=== PATIENT | male | born 1990 | race Two or more races ===

== ENCOUNTER 2019-01-24 07:13 | Inpatient (IN) | payer OTHER, MEDICAID ==
[~2019-01-24] VITALS: Ht 157.5 cm; Wt 162.4 kg
[2019-01-24] MEDS ORDERED: NITROGLYCERIN 0.4MG TABLET SL SL PRN (08:15)
[2019-01-24] MEDS ORDERED: ASPIRIN 81MG TABLET PO ONE (08:15)
[2019-01-24] MEDS ORDERED: FUROSEMIDE 40MG/4ML VIAL IV ONE (08:15)
[2019-01-24 08:48] LABS: BASOPHILS % 0.6 % (0.0-2.0); EOSINOPHILS % 1.9 % (0.0-5.0); HEMATOCRIT. 38.8 % (42.0-52.0); HEMOGLOBIN. 12.5 g/dL (14.0-18.0); LYMPHOCYTES % 15.7 % (20.0-50.0); MEAN CORPUSCULAR HEMOGLOBIN 25.4 pg (28.0-32.0); MONOCYTES % 8.6 % (2.0-8.0); NEUTROPHILS % 73.2 % (40.0-76.0); PLATELET 206 x1000/uL (130-400)
[2019-01-24 08:52] LABS: CHLORIDE 104 mEq/L (98-107)
[2019-01-24 09:03] LABS: BG BASE EXCESS 2.1 mmol/L (-2.0-2.0); BG CARBOXYHEMOGLOBIN 0.9 % (0.5-1.5); BG DEOXYHEMOGLOBIN 4.4 % (0.0-5.0); BG HCO3 ACT 28.2 mmol/L (22.0-26.0); BG METHEMOGLOBIN 0.4 % (0.0-1.5); BG OXYGEN SATURATION 95.5 % (92.0-98.5); BG OXYHEMOGLOBIN 94.3 % (94.0-97.0); BG PH 7.369 (7.350-7.450); BG PO2 80.4 mmHg (75.0-100.0); BG SAMPLE SITE RIGHT RADIAL; BG TOTAL HEMOGLOBIN 13.5 g/dL (12.0-18.0); BG VENT MODE ROOM AIR
[2019-01-24] MEDS ORDERED: HYDROCODONE/ACETAMINOPHEN 5/325MG TABLET PO ONE (14:15)
[2019-01-24] MEDS: HYDROCODONE/ACETAMINOPHEN 5/325MG TABLET PO PRN (18:25)
[2019-01-24] MEDS ORDERED: FUROSEMIDE 40MG/4ML VIAL IVP SCH (19:30)
[2019-01-24] MEDS ORDERED: MAGNESIUM HYDROXIDE 400MG/5ML 30ML UDC PO PRN (19:30)
[2019-01-24] MEDS ORDERED: CLONIDINE 0.1MG TABLET PO PRN (19:30)
[2019-01-24] MEDS ORDERED: GUAIFENESIN 200MG/10ML SUGAR FREE UDC PO PRN (19:30)
[2019-01-24] MEDS ORDERED: MAGNESIUM/ALUMINUM HYDROXIDE/SIMETHICONE 30ML UDC PO PRN (19:30)
[2019-01-24] MEDS ORDERED: IPRATROPIUM/ALBUTEROL 0.5-3(2.5)MG/3ML NEB INH PRN (19:30)
[2019-01-24] MEDS ORDERED: DIPHENHYDRAMINE 50MG/ML VIAL IV PRN (19:30)
[2019-01-24] MEDS ORDERED: ONDANSETRON HCL 4MG/2ML INJ IV PRN (19:30)
[2019-01-24] MEDS ORDERED: AMLODIPINE 5MG TABLET PO SCH (21:00)
[2019-01-24] MEDS ORDERED: AMLODIPINE 5MG TABLET PO NR (22:13)
[2019-01-24] MEDS ORDERED: HYDRALAZINE HCL 50MG TABLET PO NR (22:14)
[2019-01-24] MEDS ORDERED: FUROSEMIDE 40MG/4ML VIAL IVP NR (22:14)
[2019-01-24] MEDS ORDERED: TRAZODONE HCL 100MG TABLET PO NR (22:15)
[2019-01-24 23:00] VITALS: BP 155/123
[2019-01-25] VITALS (11 sets, daily range): BP systolic 138–187; BP diastolic 72–123
[2019-01-25] MEDS: ACETAMINOPHEN 325MG TABLET PO PRN ×2 (00:26→13:30)
[2019-01-25] MEDS: SODIUM CHLORIDE 0.9% INJ 3ML FLUSH IVF SCH ×3 (06:04→21:59)
[2019-01-25] MEDS: HYDRALAZINE HCL 50MG TABLET PO SCH ×3 (06:09→21:57)
[2019-01-25 06:42] LABS: BASOPHILS % 0.5 % (0.0-2.0); HEMATOCRIT. 39.5 % (42.0-52.0); HEMOGLOBIN. 12.7 g/dL (14.0-18.0); LYMPHOCYTES % 23.9 % (20.0-50.0); MEAN CORPUSCULAR HEMOGLOBIN 25.4 pg (28.0-32.0); MEAN CORPUSCULAR VOLUME 78.9 fL (80.0-94.0); MEAN PLATELET VOLUME 8.2 fl (7.4-10.4); MONOCYTES % 8.9 % (2.0-8.0); NEUTROPHILS % 63.7 % (40.0-76.0); PLATELET 243 x1000/uL (130-400); RED BLOOD CELL COUNT 5.01 mill/uL (4.7-6.1); RED CELL DISTRIBUTION WIDTH 14.6 % (11.6-14.6)
[2019-01-25 07:41] LABS: CHLORIDE 99 mEq/L (98-107)
[2019-01-25 07:50] LABS: PHOSPHORUS 4.9 mg/dL (2.5-4.9)
[2019-01-25] MEDS: BUDESONIDE 0.5MG/2ML NEB HHN SCH ×2 (08:19→20:45)
[2019-01-25] MEDS: AMLODIPINE 5MG TABLET PO SCH ×2 (08:52→21:56)
[2019-01-25] MEDS: HYDROCODONE/ACETAMINOPHEN 5/325MG TABLET PO PRN ×3 (08:52→21:56)
[2019-01-25] MEDS: METOLAZONE 10MG TABLET PO SCH (08:53)
[2019-01-25] MEDS: POTASSIUM CHLORIDE 20MEQ TABLET SR PO SCH (08:53)
[2019-01-25] MEDS: FUROSEMIDE 40MG/4ML VIAL IVP SCH ×2 (08:53→21:57)
[2019-01-25] MEDS: ENOXAPARIN 40MG/0.4ML SYR SUBCUT SCH ×2 (08:54→21:56)
[2019-01-25] MEDS ORDERED: IPRATROPIUM/ALBUTEROL 0.5-3(2.5)MG/3ML NEB HHN PRN (12:15)
[2019-01-25 13:21] LABS: BG BASE EXCESS 8.5 mmol/L (-2.0-2.0); BG CARBOXYHEMOGLOBIN 1.1 % (0.5-1.5); BG FRACTION INSPIRED OXYGEN 21; BG HCO3 ACT 35.2 mmol/L (22.0-26.0); BG METHEMOGLOBIN 0.2 % (0.0-1.5); BG OXYGEN SATURATION 95.9 % (92.0-98.5); BG OXYHEMOGLOBIN 94.7 % (94.0-97.0); BG PCO2 58.2 mmHg (35.0-45.0); BG PO2 82.3 mmHg (75.0-100.0); BG SAMPLE SITE LEFT RADIAL; BG TOTAL HEMOGLOBIN 13.3 g/dL (12.0-18.0); BG VENT MODE ROOM AIR
[2019-01-25] MEDS: ALPRAZOLAM 0.5 MG TABLET PO PRN (15:40)
[2019-01-25] MEDS: LOSARTAN POTASSIUM 25 MG TABLET PO SCH (15:40)
[2019-01-25] MEDS: IPRATROPIUM/ALBUTEROL 0.5-3(2.5)MG/3ML NEB HHN SCH (20:45)
[2019-01-25] MEDS: TRAZODONE HCL 100MG TABLET PO SCH (21:56)
[2019-01-25] MEDS ORDERED: PNEUMOCOCCAL 23-VAL P-SAC VAC 0.5 ML IM ONE (22:00)
[2019-01-26] VITALS (9 sets, daily range): BP systolic 109–158; BP diastolic 29–92
[2019-01-26] MEDS: IPRATROPIUM/ALBUTEROL 0.5-3(2.5)MG/3ML NEB HHN SCH ×4 (00:35→20:09)
[2019-01-26 02:30] LABS: *AMPHETAMINES SCREEN URINE NEGATIVE (NEGATIVE); *BARBITURATES SCREEN URINE NEGATIVE (NEGATIVE); *BENZODIAZEPINES SCREEN URINE NEGATIVE (NEGATIVE); *COCAINE SCREEN URINE NEGATIVE (NEGATIVE)
[2019-01-26 02:31] LABS: CANNABINOID URINE SCREEN NEGATIVE (NEGATIVE); METHADONE URINE SCREEN NEGATIVE (NEGATIVE); OPIATES URINE SCREEN PRESUMTIVE POSITIVE (NEGATIVE); PHENCYCLIDINE URINE SCREEN NEGATIVE (NEGATIVE)
[2019-01-26] MEDS: SODIUM CHLORIDE 0.9% INJ 3ML FLUSH IVF SCH ×3 (05:42→21:05)
[2019-01-26] MEDS: ALPRAZOLAM 0.5 MG TABLET PO PRN ×2 (05:42→21:04)
[2019-01-26] MEDS: HYDRALAZINE HCL 50MG TABLET PO SCH ×3 (05:54→21:05)
[2019-01-26 06:12] LABS: BASOPHILS % 0.3 % (0.0-2.0); EOSINOPHILS % 2.6 % (0.0-5.0); HEMATOCRIT. 36.1 % (42.0-52.0); HEMOGLOBIN. 11.7 g/dL (14.0-18.0); LYMPHOCYTES % 23.7 % (20.0-50.0); MEAN CORPUSCULAR HEMOGLOBIN 25.4 pg (28.0-32.0); MEAN CORPUSCULAR VOLUME 78.1 fL (80.0-94.0); MEAN PLATELET VOLUME 8.3 fl (7.4-10.4); MONOCYTES % 10.8 % (2.0-8.0); NEUTROPHILS % 62.6 % (40.0-76.0); PLATELET 213 x1000/uL (130-400); RED BLOOD CELL COUNT 4.63 mill/uL (4.7-6.1); RED CELL DISTRIBUTION WIDTH 14.2 % (11.6-14.6)
[2019-01-26 06:20] LABS: CHLORIDE 96 mEq/L (98-107)
[2019-01-26 06:37] LABS: LDL CHOLESTEROL 39 mg/dL (5-100)
[2019-01-26 06:38] LABS: HDL CHOLESTEROL 36 mg/dL (40-59)
[2019-01-26] MEDS: POTASSIUM CHLORIDE 20MEQ TABLET SR PO SCH (08:40)
[2019-01-26] MEDS: AMLODIPINE 5MG TABLET PO SCH ×2 (08:41→21:05)
[2019-01-26] MEDS: LOSARTAN POTASSIUM 25 MG TABLET PO SCH (08:41)
[2019-01-26] MEDS: BUDESONIDE 0.5MG/2ML NEB HHN SCH ×2 (08:41→20:09)
[2019-01-26] MEDS: FUROSEMIDE 40MG/4ML VIAL IVP SCH ×2 (08:41→21:04)
[2019-01-26] MEDS: METOLAZONE 10MG TABLET PO SCH (08:41)
[2019-01-26] MEDS: ENOXAPARIN 40MG/0.4ML SYR SUBCUT SCH ×2 (08:42→21:04)
[2019-01-26] MEDS: ACETAMINOPHEN 325MG TABLET PO PRN ×2 (08:59→14:08)
[2019-01-26] MEDS ORDERED: POTASSIUM CHLORIDE 20MEQ TABLET SR PO NR (14:30)
[2019-01-26] MEDS: HYDROCODONE/ACETAMINOPHEN 5/325MG TABLET PO PRN ×2 (17:59→22:29)
[2019-01-26] MEDS: TRAZODONE HCL 100MG TABLET PO SCH (21:09)
[2019-01-27] VITALS: BP 124/71
[2019-01-27 02:00] VITALS: BP 131/71
[2019-01-27] MEDS: IPRATROPIUM/ALBUTEROL 0.5-3(2.5)MG/3ML NEB HHN SCH ×3 (02:39→12:24)
[2019-01-27 04:00] VITALS: BP 127/84
[2019-01-27] MEDS: HYDRALAZINE HCL 50MG TABLET PO SCH ×2 (05:51→14:55)
[2019-01-27] MEDS: SODIUM CHLORIDE 0.9% INJ 3ML FLUSH IVF SCH ×2 (05:51→14:55)
[2019-01-27 06:00] VITALS: BP 124/73
[2019-01-27 06:13] VITALS: BP 124/73
[2019-01-27] MEDS: HYDROCODONE/ACETAMINOPHEN 5/325MG TABLET PO PRN ×3 (06:13→17:52)
[2019-01-27 07:09] LABS: BASOPHILS % 0.3 % (0.0-2.0); EOSINOPHILS % 2.4 % (0.0-5.0); HEMATOCRIT. 40.4 % (42.0-52.0); HEMOGLOBIN. 13.1 g/dL (14.0-18.0); LYMPHOCYTES % 21.9 % (20.0-50.0); MEAN CORPUSCULAR HEMOGLOBIN 25.3 pg (28.0-32.0); MEAN CORPUSCULAR VOLUME 77.9 fL (80.0-94.0); MEAN PLATELET VOLUME 8.2 fl (7.4-10.4); MONOCYTES % 9.7 % (2.0-8.0); NEUTROPHILS % 65.7 % (40.0-76.0); PLATELET 246 x1000/uL (130-400); RED BLOOD CELL COUNT 5.19 mill/uL (4.7-6.1); RED CELL DISTRIBUTION WIDTH 14.5 % (11.6-14.6)
[2019-01-27 07:20] LABS: CHLORIDE 94 mEq/L (98-107)
[2019-01-27] MEDS: BUDESONIDE 0.5MG/2ML NEB HHN SCH (08:06)
[2019-01-27] MEDS: POTASSIUM CHLORIDE 20MEQ TABLET SR PO SCH (10:56)
[2019-01-27] MEDS: LOSARTAN POTASSIUM 25 MG TABLET PO SCH (10:56)
[2019-01-27] MEDS: FUROSEMIDE 40MG/4ML VIAL IVP SCH (10:56)
[2019-01-27] MEDS: AMLODIPINE 5MG TABLET PO SCH (10:57)
[2019-01-27] MEDS: ENOXAPARIN 40MG/0.4ML SYR SUBCUT SCH (10:58)
[2019-01-27] MEDS: METOLAZONE 10MG TABLET PO SCH (10:58)
== END 2019-01-27 19:15 | disposition home or self-care (01) | DRG 194 ==
LOC: ER 07:13 → 5EST 09:20 → EDBEDREQSVC 09:24 → EDBEDREQ 09:24 → ENRESERV 20:10 → EDBEDREQTM 22:03
PROVIDERS: ADMIT Internal Medicine; ATTEND Internal Medicine
PROC: 5A09357 Assistance with Respiratory Ventilation, Less than 24 Consecutive Hours, Continuous Positive Airway Pressure (ICD-10-PCS; 2019-01-24)
PROC: 5A09357 Assistance with Respiratory Ventilation, Less than 24 Consecutive Hours, Continuous Positive Airway Pressure (ICD-10-PCS; principal; 2019-01-25)
DX: I11.0 Hypertensive heart disease with heart failure (principal); J96.00 Acute respiratory failure, unspecified whether with hypoxia or hypercapnia; E87.2 Acidosis; I50.33 Acute on chronic diastolic (congestive) heart failure; E66.2 Morbid (severe) obesity with alveolar hypoventilation; E46 Unspecified protein-calorie malnutrition; F32.9 Major depressive disorder, single episode, unspecified; F41.1 Generalized anxiety disorder; J45.909 Unspecified asthma, uncomplicated; Z68.44 Body mass index [BMI] 60.0-69.9, adult
CPT/HCPCS: 36415; 36600; 71045; 74018; 80061; 80305; 82375; 82805; 82962; 83036; 83735; 83880; 84100; 84484; 90732; 93005; 93306; 93970; 96374; 97161; 99291; J1650; J1940; J7620; J7626

== ENCOUNTER 2019-08-06 00:45 | Inpatient (IN) | payer MEDICAID ==
[~2019-08-06] VITALS: Ht 182.9 cm; Wt 213.2 kg
[2019-08-06] MEDS ORDERED: FUROSEMIDE 40MG/4ML VIAL IV ONE (01:15)
[2019-08-06] MEDS ORDERED: ENALAPRIL 2.5MG/2ML VIAL 2ML IV ONE (01:15)
[2019-08-06 02:04] LABS: BG BASE EXCESS 7.5 mmol/L (-2.0-2.0); BG CARBOXYHEMOGLOBIN 1.4 % (0.5-1.5); BG DEOXYHEMOGLOBIN 7.4 % (0.0-5.0); BG FRACTION INSPIRED OXYGEN 21; BG HCO3 ACT 34.4 mmol/L (22.0-26.0); BG METHEMOGLOBIN 0.1 % (0.0-1.5); BG OXYGEN SATURATION 92.5 % (92.0-98.5); BG OXYHEMOGLOBIN 91.1 % (94.0-97.0); BG PCO2 58.6 mmHg (35.0-45.0); BG PH 7.387 (7.350-7.450); BG PO2 65.7 mmHg (75.0-100.0); BG SAMPLE SITE RIGHT RADIAL; BG TOTAL HEMOGLOBIN 13.4 g/dL (12.0-18.0); BG VENT MODE ROOM AIR
[2019-08-06 02:12] LABS: BASOPHILS % 0.4 % (0.0-2.0); EOSINOPHILS % 2.8 % (0.0-5.0); HEMATOCRIT. 39.8 % (42.0-52.0); HEMOGLOBIN. 13.1 g/dL (14.0-18.0); LYMPHOCYTES % 28.3 % (20.0-50.0); MEAN CORPUSCULAR HEMOGLOBIN 26.2 pg (28.0-32.0); MEAN CORPUSCULAR VOLUME 79.7 fL (80.0-94.0); MEAN PLATELET VOLUME 8.9 fl (7.4-10.4); MONOCYTES % 7.8 % (2.0-8.0); NEUTROPHILS % 60.7 % (40.0-76.0); PLATELET 233 x1000/uL (130-400); RED BLOOD CELL COUNT 4.99 mill/uL (4.7-6.1); RED CELL DISTRIBUTION WIDTH 15.2 % (11.6-14.6)
[2019-08-06 02:16] LABS: CHLORIDE 100 mEq/L (98-107)
[2019-08-06] MEDS ORDERED: MORPHINE SULFATE 4 MG/ML CPJ (NOT FOR IM USE) IV NR (03:00)
[2019-08-06] MEDS ORDERED: ACETAMINOPHEN 325MG TABLET PO PRN (06:15)
[2019-08-06] MEDS ORDERED: ONDANSETRON HCL 4MG/2ML INJ IV PRN (06:15)
[2019-08-06] MEDS ORDERED: HYDROCODONE/ACETAMINOPHEN 10/325MG TABLET PO PRN (06:15)
[2019-08-06] MEDS ORDERED: GUAIFENESIN 200MG/10ML SUGAR FREE UDC PO PRN (06:15)
[2019-08-06] MEDS ORDERED: DIPHENHYDRAMINE 50MG/ML VIAL IV PRN (06:15)
[2019-08-06] MEDS ORDERED: CLONIDINE 0.1MG TABLET PO PRN (06:15)
[2019-08-06] MEDS ORDERED: NA PHOS,M-B/NA PHOS,DI-BA ENEMA 118ML PR PRN (06:15)
[2019-08-06] MEDS ORDERED: HYDRALAZINE 20MG/ML VIAL IV PRN (06:15)
[2019-08-06] MEDS ORDERED: DOCUSATE SODIUM 100MG CAPSULE PO PRN (06:15)
[2019-08-06] MEDS ORDERED: MAGNESIUM/ALUMINUM HYDROXIDE/SIMETHICONE 30ML UDC PO PRN (06:15)
[2019-08-06] MEDS ORDERED: IPRATROPIUM/ALBUTEROL 0.5-3(2.5)MG/3ML NEB HHN PRN (06:15)
[2019-08-06 08:30] VITALS: BP 152/105
[2019-08-06 10:00] VITALS: BP 152/105
[2019-08-06] MEDS: ENOXAPARIN 40MG/0.4ML SYR SUBCUT SCH ×2 (10:17→21:09)
[2019-08-06] MEDS ORDERED: LORA1TAB PO (11:25)
[2019-08-06] MEDS ORDERED: FURO-151 PO (11:25)
[2019-08-06 12:00] VITALS: BP 137/87
[2019-08-06 16:00] VITALS: BP 153/87
[2019-08-06 16:20] LABS: CREATINE KINASE MB FRACTION 1.7 ng/mL (0.5-3.6)
[2019-08-06] MEDS: MORPHINE SULFATE 2 MG/ML CPJ (NOT FOR IM USE) IV PRN (17:38)
[2019-08-06] MEDS: SODIUM CHLORIDE 0.9% INJ 3ML FLUSH IVF SCH ×2 (18:09→21:09)
[2019-08-06 20:00] VITALS: BP 142/91
[2019-08-06] MEDS: LORAZEPAM 2MG/ML CPJ IV PRN (21:09)
[2019-08-07] VITALS: BP 160/84
[2019-08-07] MEDS: MORPHINE SULFATE 2 MG/ML CPJ (NOT FOR IM USE) IV PRN (02:36)
[2019-08-07 04:00] VITALS: BP 143/84
[2019-08-07] MEDS: SODIUM CHLORIDE 0.9% INJ 3ML FLUSH IVF SCH (05:34)
[2019-08-07 06:44] LABS: BASOPHILS % 0.3 % (0.0-2.0); HEMATOCRIT. 40.8 % (42.0-52.0); HEMOGLOBIN. 13.2 g/dL (14.0-18.0); LYMPHOCYTES % 24.9 % (20.0-50.0); MEAN CORPUSCULAR HEMOGLOBIN 25.9 pg (28.0-32.0); MEAN CORPUSCULAR VOLUME 80.2 fL (80.0-94.0); MEAN PLATELET VOLUME 8.9 fl (7.4-10.4); MONOCYTES % 7.5 % (2.0-8.0); NEUTROPHILS % 64.3 % (40.0-76.0); PLATELET 231 x1000/uL (130-400); RED BLOOD CELL COUNT 5.09 mill/uL (4.7-6.1); RED CELL DISTRIBUTION WIDTH 14.5 % (11.6-14.6)
[2019-08-07 06:53] LABS: CHLORIDE 100 mEq/L (98-107)
[2019-08-07 07:06] LABS: CREATINE KINASE 167 IU/L (39-308); HDL CHOLESTEROL 43 mg/dL (40-59); LDL CHOLESTEROL 59 mg/dL (5-100)
[2019-08-07 07:07] LABS: CREATINE KINASE MB FRACTION 1.7 ng/mL (0.5-3.6)
[2019-08-07 07:08] LABS: T4 FREE 0.79 ng/dL (0.76-1.46)
[2019-08-07 08:00] VITALS: BP 147/84
[2019-08-07] MEDS: LORAZEPAM 2MG/ML CPJ IV PRN (08:50)
[2019-08-07] MEDS ORDERED: FUROSEMIDE 40MG/4ML VIAL IVP SCH (09:00)
[2019-08-07] MEDS: ENOXAPARIN 40MG/0.4ML SYR SUBCUT SCH (09:32)
[2019-08-07 10:41] VITALS: BP 147/84
[2019-08-07 12:00] VITALS: BP 157/90
== END 2019-08-07 16:20 | disposition home or self-care (01) | DRG 194 ==
LOC: ER 00:52 → 6WST 05:23 → EDBEDREQTM 05:26 → EDBEDREQ 05:26 → ENRESERV 07:43
PROVIDERS: ADMIT Internal Medicine; ATTEND Internal Medicine
DX: I11.0 Hypertensive heart disease with heart failure (principal); E66.01 Morbid (severe) obesity due to excess calories; E78.5 Hyperlipidemia, unspecified; I50.33 Acute on chronic diastolic (congestive) heart failure; J45.909 Unspecified asthma, uncomplicated; Z68.44 Body mass index [BMI] 60.0-69.9, adult; Z79.899 Other long term (current) drug therapy
CPT/HCPCS: 36415; 36600; 71045; 76700; 80061; 82375; 82550; 82553; 82805; 83036; 83880; 84439; 84443; 84484; 85379; 93005; 93306; 93970; 94640; 96374; 99285; J1650; J1940; J2060; J2270; J2405; J3490; J7620

== ENCOUNTER 2019-11-01 00:43 | Emergency (ER) | payer MEDICAID ==
[~2019-11-01] VITALS: Ht 180.3 cm; Wt 159.0 kg
[~2019-11-01 00:43] MED LIST: FURO-151 PO; LORA1TAB PO
[2019-11-01 00:52] VITALS: BP 146/92
== END 2019-11-01 03:04 | disposition left against medical advice (07) ==
LOC: ER 00:43
DX: Z53.21 Procedure and treatment not carried out due to patient leaving prior to being seen by health care provider (principal)

== ENCOUNTER 2022-02-28 22:35 | Emergency (ER) | payer MEDICAID, OTHER ==
[~2022-02-28] VITALS: Ht 172.7 cm; Wt 200.0 kg
[2022-02-28 23:00] VITALS: BP 110/66
[2022-03-01] MEDS ORDERED: INSU100I28 SQ (00:34)
[2022-03-01] MEDS ORDERED: METF-416 MT (00:34)
[2022-03-01] MEDS ORDERED: LOSA25TA3 MT (00:34)
[2022-03-01] MEDS ORDERED: FURO-151 MT (00:34)
== END 2022-03-01 00:50 ==
LOC: ER 22:35
DX: Z76.0 Encounter for issue of repeat prescription (principal); Z00.00 Encounter for general adult medical examination without abnormal findings; J45.909 Unspecified asthma, uncomplicated; E11.9 Type 2 diabetes mellitus without complications; I10 Essential (primary) hypertension; Z79.899 Other long term (current) drug therapy
CPT/HCPCS: 82962; 99283